=== PATIENT | female | born 1995 | race Caucasian/White ===

== ENCOUNTER → 2016-07-24 | Outpatient (REF) | payer BC ==
[2016-07-24 20:08] LABS: BASO % 0.4 % (0.0-1.0); EOS # 0.2 K/mm3 (0.0-0.50); EOS % 3.7 % (0.0-3.0); LARGE UNSTAINED CELL # 0.1 K/mm3 (0.0-0.4); LARGE UNSTAINED CELL % 1.8 % (0.0-4.0); LYMPH # 1.8 K/mm3 (1.5-6.5); LYMPH % 26.1 % (24.0-44.0); MEAN CORPUSCULAR HEMOGLOBIN 30.8 pg (27.0-33.0); MEAN CORPUSCULAR HGB CONC 33.4 g/dl (32.0-36.5); MEAN CORPUSCULAR VOLUME 92.2 fl (80.0-96.0); MONO # 0.3 K/mm3 (0.0-0.8); MONO % 4.2 % (0.0-5.0); NEUTROPHILS # 4.2 K/mm3 (1.8-7.7); NEUTROPHILS % 63.8 % (36.0-66.0); PLATELET COUNT, AUTOMATED 230 k/mm3 (150-450); RED CELL DISTRIBUTION WIDTH 11.9 % (11.5-14.5); WHITE BLOOD COUNT 6.5 K/mm3 (4.0-10.0)
[2016-07-24 20:19] LABS: ALBUMIN 4.2 GM/DL (3.2-5.2); ALBUMIN/GLOBULIN RATIO 1.14 (1.00-1.93); ALKALINE PHOSPHATASE 75 U/L (45-117); ALT/SGPT 15 U/L (12-78); ANION GAP 9 MEQ/L (8-16); AST/SGOT 16 U/L (15-37); BILIRUBIN,TOTAL 0.8 MG/DL (0.2-1.0); BLOOD UREA NITROGEN 8 MG/DL (7-18); CALCIUM LEVEL 8.9 MG/DL (8.5-10.1); CARBON DIOXIDE LEVEL 27 MEQ/L (21-32); CHLORIDE LEVEL 107 MEQ/L (98-107); FREE T4 1.04 NG/DL (0.78-1.33); GLUCOSE, FASTING 122 MG/DL (70-105); POTASSIUM SERUM 4.2 MEQ/L (3.5-5.1); SODIUM LEVEL 143 MEQ/L (136-145); TOTAL PROTEIN 7.9 GM/DL (6.4-8.2)
[2016-07-25 10:11] LABS: HEPATITIS B SURFACE ANTIBODY POSITIVE (POSITIVE)
[2016-07-25 10:26] LABS: CONTROL LINE INT CTR LINE PRESENT; HIV SCRN NEGATIVE (NEGATIVE); HIV SCRN1 NEGATIVE (NEGATIVE)
== END ==
LOC: M SFHCADAM 18:14
PROVIDERS: ATTEND Physician Assistant
DX: N72 Inflammatory disease of cervix uteri (principal); N94.6 Dysmenorrhea, unspecified
CPT/HCPCS: 80053; 84439; 84443; 85025; 86704; 86705; 86706; 86707; 86780; 86803; 87340; 87350; 87491; 87591; 87806; G0123

== ENCOUNTER → 2016-07-25 | Outpatient (CLI) | payer BC ==
--- NOTE | 2016-07-25 10:31 | REP ---
PELVIC SONOGRAM: HISTORY: Abnormal menstrual bleeding. Transabdominal and transvaginal scanning are performed. FINDINGS: Uterine dimensions are normal at 6.0 x 2.6 x 3.9 cm. Endometrial echo is 0.3 cm thick and centrally placed. No free fluid is seen. Normal ovaries are seen bilaterally. Right ovary dimensions of 2.3 x 2.1 x 1.6 cm. Left ovary measures 2.5 x 1.4 x 1.8 cm. Ovarian Doppler flow is normal bilaterally with resistive indices measured at 0.36 on the right and 0.62 on the left. The visualized bladder mcfadden are smooth. IMPRESSION: Normal pelvic sonography. Signed by Wilson Rawls MD 07/25/2016 10:45 A
== END ==
LOC: M RAD 09:34
PROVIDERS: ATTEND Physician Assistant
DX: N93.9 Abnormal uterine and vaginal bleeding, unspecified (principal)

== ENCOUNTER → 2016-11-10 | Outpatient (REF) | payer BC ==
[2016-11-16 00:06] LABS: GC Carboxy THC 38 ng/mL (Cutoff=10)
== END ==
LOC: M OUTALCOH 09:41
PROVIDERS: ATTEND Psychiatry & Neurology Psychiatry
DX: Z13.9 Encounter for screening, unspecified (principal); F12.10 Cannabis abuse, uncomplicated
CPT/HCPCS: 80306; G0480

== ENCOUNTER → 2017-02-10 | Outpatient (CLI) | payer BC ==
--- NOTE | 2017-02-10 15:32 | REP ---
ULTRASOUND LEFT LOWER OUTER QUADRANT: Real-time sonographic evaluation of the left lower outer quadrant performed at the site of a reported palpable abnormality. There is solid nodule at this location measuring 1.7 x 1.0 x 1.2 cm. It is wider than tall and has a lobulated margin. This most likely represents a fibroadenoma. It is probably benign. IMPRESSION: Solid nodule at the site of the reported palpable abnormality with a maximum diameter of 1.7 cm. This is probably benign and probably represents a fibroadenoma. Recommend followup ultrasound in six months. ACR 3 probably benign.
== END ==
LOC: M WHC 10:27
PROVIDERS: ATTEND Physician Assistant
DX: N60.02 Solitary cyst of left breast (principal)

== ENCOUNTER → 2017-06-03 | Outpatient (REF) | payer BC ==
[2017-06-03 21:07] LABS: CHLAMYDIA DNA AMPLIFICATION NEGATIVE (NEGATIVE); GC DNA AMPLIFICATION NEGATIVE (NEGATIVE)
== END ==
LOC: M LAB REF 17:07
DX: Z11.3 Encounter for screening for infections with a predominantly sexual mode of transmission (principal); Z12.4 Encounter for screening for malignant neoplasm of cervix; A51.31 Condyloma latum
CPT/HCPCS: 87591

== ENCOUNTER → 2018-05-23 | Outpatient (CLI) | payer BC ==
--- NOTE | 2018-05-25 13:57 | SLEEPCENT ---
DATE OF PROCEDURE: 05/23/2018 ORDERING PROVIDER: Tessa Peterson Nocturnal polysomnography was performed for evaluation of sleep physiology in this patient with a history of excessive somnolence and nonrestorative sleep. 9 hours and 18 minutes of data were reviewed. There were 481 minutes of sleep identified. Sleep latency was very mildly prolonged at 20 minutes. Rapid eye movement (REM) sleep latency was short at 35 minutes. Sleep architecture was good with five REM cycles. Overall sleep efficiency was 87.4%. The patient's electrocardiogram showed sinus rhythm with an average heart rate of 76 beats per minute. Electroencephalogram (EEG) showed mild coarsening in the background, possibly medication effect. No focal events were seen. There were normal waveforms for awake and sleep stages. There were only four respiratory events identified of 10 seconds in duration or greater for an apnea-hypopnea index well within normal limits at 0.5. Snoring was noted. Arousals from respiratory events occurred 1.9 times per hour. There was minimal limb activity seen. Limb movement arousal index was 0.7. Oxygen saturations remained 90% plus throughout the study. IMPRESSION: Normal nocturnal polysomnography with snoring.
== END ==
LOC: M SLEEP 20:00
PROVIDERS: ATTEND Nurse Practitioner Family
DX: R40.0 Somnolence (principal)

== ENCOUNTER → 2020-03-14 | Outpatient (REF) | payer OTHER ==
[2020-03-14 17:56] LABS: HEMATOCRIT 41.4 % (36.0-47.0); HEMOGLOBIN 13.7 g/dl (12.0-15.5); MEAN CORPUSCULAR HEMOGLOBIN 30.8 pg (27.0-33.0); MEAN CORPUSCULAR HGB CONC 33.1 g/dl (32.0-36.5); PLATELET COUNT, AUTOMATED 201 10^3/uL (150-450); RED BLOOD COUNT 4.45 10^6/uL (4.00-5.40); WHITE BLOOD COUNT 7.2 10^3/uL (4.0-10.0)
[2020-03-14 18:12] LABS: FREE T4 1.01 NG/DL (0.76-1.46)
[2020-03-14 18:54] LABS: HEPATITIS C VIRUS ABY INDEX 0.1 INDEX (<0.8)
[2020-03-14 18:56] LABS: HIV 1&2 SCREEN CENTAUR NEGATIVE (NEGATIVE)
== END ==
LOC: M PLALAB 14:36
PROVIDERS: ATTEND Advanced Practice Midwife
DX: O99.281 Endocrine, nutritional and metabolic diseases complicating pregnancy, first trimester (principal)

== ENCOUNTER → 2020-04-16 | Outpatient (CLI) | payer OTHER | LOC: M PLALAB 13:36 | PROVIDERS: ATTEND Obstetrics & Gynecology | DX: Z36.89 Encounter for other specified antenatal screening (principal) ==

== ENCOUNTER → 2020-05-07 | Outpatient (CLI) | payer OTHER ==
--- NOTE | 2020-05-07 08:41 | REP ---
INDICATION: ANATOMY COMPARISON: None. TECHNIQUE: Transabdominal obstetrical ultrasound with color Doppler evaluation. FINDINGS: Examination demonstrates a single live intrauterine in cephalic presentation. motion is identified by technologist. Placenta is noted anterior and grade 1 without evidence for placenta previa or abruption. Amniotic fluid volume is normal. Cervix measures 3.5 cm in length and appears closed.. Gestational age by LMP 18 weeks 1 day with KUSHAL 10/07/2020. Gestational age by current measurements 18 weeks 2 days with KUSHAL 10/06/2020. FHR equals 144 beats per minute. BPD: 4.2 cm 18 weeks 5 days HC: 15.2 cm 18 weeks 2 days AC: 12.4 cm 18 weeks 0 days FL: 2.7 cm 18 weeks 2 days HL: 2.6 cm 18 weeks 2 days HC/AC: 1.23 Estimated weight 226 grams (48thpercentile). Anatomical assessment demonstrates normal structures including cranium, choroid plexus, cavum, cerebellum/posterior fossa, facial features, lungs, diaphragm, stomach, cord insertion/three-vessel cord, kidneys/bladder, spine, and extremities. Echogenic focus in the left cardiac ventricle likely representing prominent chordae tendineae. IMPRESSION: Single live intrauterine demonstrating appropriate interval growth. Limited evaluation of the heart/ventricular outflow tracts may warrant re-evaluation and follow-up. Remainder of the anatomical assessment is complete and normal. <Electronically signed by Jhonny Quevedo > 05/07/20 [id number]
== END ==
LOC: M WHC 07:24
PROVIDERS: ATTEND Obstetrics & Gynecology
DX: Z36.89 Encounter for other specified antenatal screening (principal); Z3A.18 18 weeks gestation of pregnancy

== ENCOUNTER → 2020-05-09 | Outpatient (CLI) | payer OTHER ==
[2020-05-09 14:24] LABS: FREE T4 1.13 NG/DL (0.76-1.46); THYROID STIMULATING HORMONE 5.56 uIU/ML (0.358-3.740)
== END ==
LOC: M WHC 09:41
PROVIDERS: ATTEND Obstetrics & Gynecology
DX: Z34.80 Encounter for supervision of other normal pregnancy, unspecified trimester (principal); Z3A.18 18 weeks gestation of pregnancy

== ENCOUNTER → 2020-05-28 | Outpatient (CLI) | payer OTHER ==
--- NOTE | 2020-05-28 17:47 | REP ---
INDICATION: F/U ANATOMY COMPARISON: 05/07/2020 TECHNIQUE: Transabdominal obstetrical ultrasound with color Doppler evaluation. FINDINGS: Examination demonstrates a single live intrauterine in breech presentation. motion is identified by technologist. Placenta is noted anterior and grade 1 without evidence for placenta previa or abruption. Amniotic fluid volume is normal. Cervix measures 3.6 cm in length and appears closed.. Gestational age by LMP twenty-one weeks 1 day with KUSHAL 10/07/2020. Gestational age by current measurements 21 weeks 0 days with KUSHAL 10/08/2020. FHR equals 135 beats per minute. Estimated weight 390 grams (38thpercentile). Anatomical assessment demonstrates normal structures including cardiac ventricular outflow tract. Echogenic focus within the left cardiac ventricle consistent with prominent chordae tendinae again noted. IMPRESSION: Single live intrauterine in breech presentation demonstrating appropriate estimated weight and growth. Limited anatomical assessment as above. <Electronically signed by Jhonny Quevedo > 05/28/20 [id number]
== END ==
LOC: M WHC 13:17
PROVIDERS: ATTEND Obstetrics & Gynecology
DX: Z36.2 Encounter for other antenatal screening follow-up (principal); Z3A.21 21 weeks gestation of pregnancy

== ENCOUNTER → 2020-06-06 | Outpatient (REF) | payer OTHER ==
[2020-06-06 11:12] LABS: FREE T4 1.11 NG/DL (0.76-1.46); THYROID STIMULATING HORMONE 4.64 uIU/ML (0.358-3.740)
== END ==
LOC: M PLALAB 08:35
PROVIDERS: ATTEND Advanced Practice Midwife
DX: O99.282 Endocrine, nutritional and metabolic diseases complicating pregnancy, second trimester (principal); Z3A.22 22 weeks gestation of pregnancy; E03.9 Hypothyroidism, unspecified

== ENCOUNTER → 2020-07-10 | Outpatient (REF) | payer OTHER ==
[2020-07-10 15:27] LABS: HEMATOCRIT 36.6 % (36.0-47.0); HEMOGLOBIN 11.5 g/dl (12.0-15.5); MEAN CORPUSCULAR HEMOGLOBIN 28.6 pg (27.0-33.0); MEAN CORPUSCULAR HGB CONC 31.4 g/dl (32.0-36.5); PLATELET COUNT, AUTOMATED 194 10^3/uL (150-450); RED BLOOD COUNT 4.02 10^6/uL (4.00-5.40); WHITE BLOOD COUNT 9.8 10^3/uL (4.0-10.0)
== END ==
LOC: M PLALAB 11:19
PROVIDERS: ATTEND Advanced Practice Midwife
DX: Z3A.22 22 weeks gestation of pregnancy (principal)

== ENCOUNTER → 2020-07-13 | Outpatient (CLI) | payer OTHER | LOC: M LAB 08:27 | PROVIDERS: ATTEND Advanced Practice Midwife | DX: Z53.21 Procedure and treatment not carried out due to patient leaving prior to being seen by health care provider (principal) ==

== ENCOUNTER → 2020-08-17 | Outpatient (REF) | payer OTHER ==
[2020-08-17 15:02] LABS: FREE T4 1.22 NG/DL (0.76-1.46); THYROID STIMULATING HORMONE 1.7 uIU/ML (0.358-3.740)
[2020-08-17 16:16] LABS: HEMOGLOBIN A1c 4.9 %
== END ==
LOC: M SFHCWAGY 14:18
PROVIDERS: ATTEND Advanced Practice Midwife
DX: O99.820 Streptococcus B carrier state complicating pregnancy (principal); O99.810 Abnormal glucose complicating pregnancy

== ENCOUNTER → 2020-09-26 | Outpatient (CLI) | payer OTHER ==
[~2020-09-26] MED LIST: ACET500P3 PO; LEVO50TA5 PO
--- NOTE | 2020-09-27 05:54 | REP ---
INDICATION: GROWTH/VIDYA/KUSHAL 10/07/20 COMPARISON: 05/28/2020 TECHNIQUE: Transabdominal obstetrical ultrasound with color Doppler evaluation. FINDINGS: Examination demonstrates a single live intrauterine in cephalic presentation. motion is identified by technologist. Placenta is noted anterior and grade 2 without evidence for placenta previa or abruption. Amniotic fluid volume is normal. Cervix measures 3.0 cm in length and appears closed.. Gestational age by LMP and 1st U/S 30 weeks 3 days with KUSHAL 10/07/2020. Gestational age by current measurements 36 weeks 4 days with KUSHAL 10/20/2020. FHR equals 147 beats per minute. BPD: 9.0 cm at 36 weeks 4 days HC: 32.7 cm at 37 weeks 1 day AC: 33.7 cm at 37 weeks 4 days FL: 7.1 cm at 36 weeks 4 days HL: 6.1 cm at 35 weeks 2 days HC/AC: 0.97 Estimated weight 3138 grams (34thpercentile). VIDYA: 12.2 cm IMPRESSION: Single live intrauterine in cephalic presentation demonstrating appropriate estimated weight and growth. <Electronically signed by Jhonny Quevedo > 09/27/20 0530
== END ==
LOC: M WHC 11:21
PROVIDERS: ATTEND Advanced Practice Midwife
DX: O24.419 Gestational diabetes mellitus in pregnancy, unspecified control (principal); Z3A.36 36 weeks gestation of pregnancy

== ENCOUNTER 2020-09-28 04:31 | Inpatient (IN) | payer OTHER ==
[2020-09-28] VITALS (10 sets, daily range): BP systolic 126–150; BP diastolic 78–91
[~2020-09-28] VITALS: Ht 152.4 cm; Wt 50.5 kg
[2020-09-28] MEDS ORDERED: LACTATED RINGER'S 1000 ML IV STA (04:58)
[2020-09-28] MEDS ORDERED: LR 1,000 ML IV SCH (05:00)
[2020-09-28] MEDS ORDERED: ACET500P3 PO (05:10)
[2020-09-28] MEDS ORDERED: OXYTOCIN 30 UNITS IN 0.9% NaCl 500ML IV BAG (J2590) As Ordered ONE (05:17)
[2020-09-28 05:35] LABS: HEMATOCRIT 40.4 % (36.0-47.0); HEMOGLOBIN 12.5 g/dl (12.0-15.5); MEAN CORPUSCULAR HEMOGLOBIN 26.7 pg (27.0-33.0); MEAN CORPUSCULAR HGB CONC 30.9 g/dl (32.0-36.5); MEAN CORPUSCULAR VOLUME 86.3 fl (80.0-96.0); PLATELET COUNT, AUTOMATED 194 10^3/uL (150-450); RED BLOOD COUNT 4.68 10^6/uL (4.00-5.40); WHITE BLOOD COUNT 12.6 10^3/uL (4.0-10.0)
[2020-09-28] MEDS ORDERED: OXYTOCIN DRIP 30 UNITS in IV 1 EA IV SCH (06:50)
[2020-09-28] MEDS ORDERED: METHYLERGONOVINE MALEATE 0.2 MG TAB PO PRN (06:50)
[2020-09-28] MEDS ORDERED: ACETAMINOPHEN TAB 650MG DOSE (2X325MG) PO PRN (06:50)
[2020-09-28] MEDS ORDERED: MEASLES,MUMPS,RUBELLA VACCINE INJ (MMR-II) (90707) SC SCH (06:50)
[2020-09-28] MEDS ORDERED: ACETAMINOPHEN 500 MG TAB PO PRN (06:50)
[2020-09-28] MEDS ORDERED: RHOGAM 300 MCG (1500 IU) INJ (J2790) IM SCH (06:50)
[2020-09-28] MEDS ORDERED: ANUSOL HC CREAM 30GM TOP PRN (06:50)
[2020-09-28] MEDS ORDERED: DIBUCAINE 1% OINTMENT 30GM TOP PRN (06:50)
[2020-09-28] MEDS ORDERED: MOM 30ML SUSPENSION UDC PO PRN (06:50)
--- NOTE | 2020-09-28 07:01 | HPEPDOC ---
Obstetrical History & Physical General Date of Admission September 28, 2020 at 04:45 History of Present Illness 25yo G1 at 38w5d presents with c/o contractions that started at midnight and gush of clear fluid ~0400. course remarkable for A1 gestational diabetes Chief Complaint: Contractions, term, Rupture of membranes Age: 25 : 1 Care Care: Good Care Dating Final EDC: October 07, 2020 Final EDC by: 1st trimester (US) EGA at Admission: 38 Past Medical History Past Obstetrical History : Past Obstetrical History: Primgravida Past Medical History Medical History Hypothyroidism Social History Marital Status: Single * Smoker: non-smoker Alcohol: Denies Drugs: denies Allergies Coded Allergies: No Known Allergies (Unverified , 09/28/20) Medications Scheduled PRN Acetaminophen (Tylenol Extra Strength) 500 Mg Powd.pack, 1,000 MG PO Q6-8HP PRN for PAIN OR FEVER Physical Examination Physical Examination GENERAL: Alert and oriented times three. BREAST: . ABDOMEN: Gravid and non-tender to touch. FETUS: Is vertex (VTX) by sterile vaginal examination (SVE), fetus is vertex (VTX) by Jose. HEART RATE: Regular rate and rhythm. LUNGS: Clear to auscultation (CTA). Laboratory Data 24H LABS Laboratory Tests 2 09/28/20 04:46: Serology Scanned Report Hepatitis B Testing 09/28/20 05:09: Nucleated Red Blood Cells % (auto) 0.0 CBC/BMP Laboratory Tests 09/28/20 05:09 Pertinent Laboratoy Data Blood Type: A+ RBC Antibody Screen: Negative HIV: Negative Hepatitis B: Negative Hepatitis C: Negative Rapid Plasma Reagin: Nonreactive Rubella: Immune Chlamydia/Gonorrhea: Negative Group B Streptococcus: Negative Vaginal Examination Dilation: 8 cm Effacement: 100% Station: 0 Cervical Consistency: Soft Presentation: Cephalic presentation (grossly ruptured) Assessment Variability: Moderate Tocometer Contractions: Yes Frequency: regular Assessment/Plan Assessment 25-year-old 1 at 38 weeks 5 days estimated gestational age with spontaneous rupture of membranes Reassuring status A1 Gestational diabetes Plan Admit and orient. Second Rigger and consent. Group B Streptococcus (GBS) negative. Labs and intravenous (IV) per unit protocol. Counseled on Pitocin and induction of labor (IOL). Anticipate normal spontaneous delivery (). C-S as appropriate. ESME CONTRERAS MD. September 28, 2020 07:01
--- NOTE | 2020-09-28 07:04 | DNPDOC ---
[facility] Delivery Note Delivery Note DATE OF DELIVERY: 09/28/2020 TIME OF : 0631 GENDER: Female APGARS: 9 and 9. WEIGHT: 2930g or 6 lbs. 7 oz. LACERATIONS: none ANESTHESIA: none ESTIMATED BLOOD LOSS: 200 ml COUNTS: 5 laparotomy sponges accounted for prior to after delivery. DELIVERY NOTE: On 09/29/2019 at 0631 Ms Becky hewitt smoker a 25-year-old 1 para 1 had a spontaneous vaginal delivery of a live female infant Apgars 9 and 9 was 2930 g 6 lbs. 7 oz. Head was delivered occiput anterior (OA), followed by delivery of the shoulders and corpus. Infant was handed to mom with a good cry. Cord was clamped times two and was cut by support person under my direction. Placenta was then drained and delivered grossly intact. A premixed bag of 500 mL of normal saline with 30 units of Pitocin was then bolused along with uterine massage until the uterus was firm. On inspection cervix, vagina, perineum was grossly intact and hemostatic. Mom and baby in recovery on stable condition. Couples decided to name in daughter Ute Castillo. ESME CONTRERAS MD. September 28, 2020 07:04
[2020-09-28] MEDS: IBUPROFEN 800 MG TAB PO PRN (07:08)
[2020-09-28] MEDS ORDERED: LEVO50TA5 PO (08:01)
[2020-09-28] MEDS: PRENATAL VITAMINS CHEWABLE TABLET PO SCH (08:55)
[2020-09-28] MEDS: LEVOTHYROXINE 150MCG TABLET (0.15MG) PO SCH (11:03)
[2020-09-28] MEDS: LEVOTHYROXINE 25MCG TABLET (0.025MG) PO SCH (11:03)
[2020-09-28] MEDS: DOCUSATE SODIUM 100MG CAPSULE PO PRN (19:47)
[2020-09-28] MEDS: IBUPROFEN 600MG TAB PO PRN (23:33)
[2020-09-29 05:57] VITALS: BP 118/72
[2020-09-29] MEDS: LEVOTHYROXINE 150MCG TABLET (0.15MG) PO SCH (06:02)
[2020-09-29] MEDS: LEVOTHYROXINE 25MCG TABLET (0.025MG) PO SCH (06:05)
--- NOTE | 2020-09-29 07:42 | IPNPDOC ---
Text Note Date of Service The patient was seen on 09/29/20. NOTE PP #1 Feels well. Adequate pain management. Voiding VSS, afebrile, normotensive Breasts soft Fundus firm, NT, down 1 FB Lochia rubra light Perineum intact PP #1 Routine care. Anticipate D/C in am VS,Fishbone, I+O VS, Fishbone, I+O Vital Signs Date Time Temp Pulse Resp B/P (MAP) Pulse Ox O2 Delivery O2 Flow Rate FiO2 09/29/20 05:57 98.4 67 16 118/72 (87) 98 Room Air I&O- Last 24 Hours up to 6 AM 09/29/20 06:00 Intake Total 500 ml Output Total 500 ml Balance 0 ml Jenny Coyle CNM September 29, 2020 07:42
[2020-09-29] MEDS: PRENATAL VITAMINS CHEWABLE TABLET PO SCH (09:30)
[2020-09-29] MEDS: IBUPROFEN 600MG TAB PO PRN (09:30)
[2020-09-29] MEDS: IBUPROFEN 800 MG TAB PO PRN (16:54)
[2020-09-29 18:00] VITALS: BP 121/66
[2020-09-29] MEDS: DOCUSATE SODIUM 100MG CAPSULE PO PRN (20:30)
[2020-09-30] MEDS: IBUPROFEN 800 MG TAB PO PRN (03:39)
[2020-09-30 05:55] VITALS: BP 138/67
[2020-09-30] MEDS: LEVOTHYROXINE 150MCG TABLET (0.15MG) PO SCH (05:56)
[2020-09-30] MEDS: LEVOTHYROXINE 25MCG TABLET (0.025MG) PO SCH (05:56)
[2020-09-30] MEDS: PRENATAL VITAMINS CHEWABLE TABLET PO SCH (09:05)
[2020-09-30] MEDS ORDERED: DOK1CAP7 PO (12:05)
[2020-09-30] MEDS ORDERED: IBUP80TA PO (12:05)
--- NOTE | 2020-09-30 13:24 | IPNPDOC ---
Progress Note Date of Service: September 30, 2020 Day#: 2 Progress Note PPD 2 SUBJECT: Glory is a 25yo s/p uncomplicated at term after presenting in active labor with SROM, doing well day # 2. She has been ambulating, voiding spontaneously without issue and tolerating regular diet. Breast feeding without issue. Reports lochia is like a normal period. No f/c/n/v/CP/SOB. OBJECTIVE: VITAL SIGNS: Within normal limits, afebrile. Alert and oriented times three. Abdomen: Fundus firm at U-2. Soft, NTTP. Extremities: no pain with palpation of calves ASSESSMENT: Glory is a 25yo s/p uncomplicated at term after presenting in active labor with SROM, doing well day # 2. Vitals within normal limits, afebrile, hemodynamically stable with no evidence of infection. PLAN: 1. Discharge to home today. 2. Tylenol and Motrin for pain. 3. Regular diet 4. No heavy lifting, vaginal rest 6 weeks 5. Encourage breast feeding and ambulation. 6. Undecided on contraception, will consider more and re-address at 6wk PP visit. 7. Routine PP visit in 6 weeks in clinic. 8. Discussed return precautions at length. Toña Boogie MD VS, I&O, 24H, Fishbone Vital Signs/I&O Vital Signs Date Time Temp Pulse Resp B/P (MAP) Pulse Ox O2 Delivery O2 Flow Rate FiO2 09/30/20 05:55 98.4 72 15 138/67 (90) 09/29/20 18:00 99 Room Air Toña Boogie MD September 30, 2020 13:24
--- NOTE | 2020-09-30 13:26 | DS.PDOC ---
Discharge Summary General Date of Admission September 28, 2020 at 04:45 Date of Discharge September 30, 2020 Discharge Summary PROCEDURES PERFORMED DURING STAY: spontaneous vaginal delivery ADMITTING DIAGNOSES: 1. Active labor with SROM at term DISCHARGE DIAGNOSES: 1. Active labor with SROM at term COMPLICATIONS/CHIEF COMPLAINT: Induction Of Labor. HISTORY OF PRESENT ILLNESS/HOSPITAL COURSE: Glory is a 25yo s/p uncomplicated at term after presenting in active labor with SROM, doing well day # 2. She had a benign course and at time of discharge, vitals were within normal limits, afebrile, hemodynamically stable with no evidence of infection. DISCHARGE MEDICATIONS: Please see below. ALLERGIES: Please see below. PHYSICAL EXAMINATION ON DISCHARGE: VITAL SIGNS: Within normal limits, afebrile. Alert and oriented times three. Abdomen: Fundus firm at U-2. Soft, NTTP. Extremities: no pain with palpation of calves LABORATORY DATA: Please see below. DISCHARGE INSTRUCTIONS: 1. Discharge to home today. 2. Tylenol and Motrin for pain. 3. Regular diet 4. No heavy lifting, vaginal rest 6 weeks 5. Encourage breast feeding and ambulation. 6. Undecided on contraception, will consider more and re-address at 6wk PP visit 7. Routine PP visit in 6 weeks in clinic. 8. Discussed return precautions at length. DISCHARGE CONDITION: Stable TIME SPENT ON DISCHARGE: Greater than 20 minutes. Toña Boogie MD Vital Signs/I&Os Vital Signs Date Time Temp Pulse Resp B/P (MAP) Pulse Ox O2 Delivery O2 Flow Rate FiO2 09/30/20 05:55 98.4 72 15 138/67 (90) 09/29/20 18:00 99 Room Air Discharge Medications Scheduled Levothyroxine Sodium (Levothyroxine Sodium) 50 Mcg Tablet, 25 MCG PO DAILY, (Reported) Levothyroxine Sodium (Levothyroxine Sodium) 50 Mcg Tablet, 150 MCG PO DAILY, (Reported) Scheduled PRN Acetaminophen (Tylenol Extra Strength) 500 Mg Powd.pack, 1,000 MG PO Q6-8HP PRN for PAIN OR FEVER, (Reported) Docusate Sodium (Dok) 100 Mg Capsule, 100 MG PO BIDP PRN for CONSTIPATION Ibuprofen (Ibuprofen) 800 Mg Tablet, 800 MG PO Q8HP PRN for PAIN LEVEL 6-10 Allergies Coded Allergies: No Known Allergies (Unverified , 09/28/20) Toña Boogie MD September 30, 2020 13:26
== END 2020-09-30 13:40 | disposition home or self-care (01) | DRG 560 ==
LOC: M LDO 04:31 → M LDI 04:45 → M OBS 13:35
PROVIDERS: ADMIT Obstetrics & Gynecology; ATTEND Obstetrics & Gynecology
PROC: 10E0XZZ Delivery of Products of Conception, External Approach (ICD-10-PCS; principal; 2020-09-28)
DX: O24.420 Gestational diabetes mellitus in childbirth, diet controlled (principal); Z3A.38 38 weeks gestation of pregnancy; Z37.0 Single live birth; O99.284 Endocrine, nutritional and metabolic diseases complicating childbirth; E03.9 Hypothyroidism, unspecified

== ENCOUNTER → 2021-04-02 | Outpatient (REF) | payer OTHER ==
[~2021-04-02] MED LIST changes: +DOK1CAP4 PO; +IBUP80TA PO
[2021-04-02 12:17] LABS: BASO # 0.1 10^3/uL (0.0-0.2); BASO % 0.8 % (0.0-1.0); EOS # 0.2 10^3/uL (0.0-0.5); EOS % 3.1 % (0.0-3.0); HEMATOCRIT 45.6 % (36.0-47.0); HEMOGLOBIN 14.4 g/dl (12.0-15.5); LYMPH % 41.4 % (24.0-44.0); MEAN CORPUSCULAR HEMOGLOBIN 29.5 pg (27.0-33.0); MEAN CORPUSCULAR HGB CONC 31.6 g/dl (32.0-36.5); MEAN CORPUSCULAR VOLUME 93.4 fl (80.0-96.0); MONO # 0.4 10^3/uL (0.0-0.8); MONO % 5.9 % (2.0-8.0); NEUTROPHILS # 3.6 10^3/uL (1.5-8.5); NEUTROPHILS % 48.7 % (36.0-66.0); PLATELET COUNT, AUTOMATED 221 10^3/uL (150-450); RED BLOOD COUNT 4.88 10^6/uL (4.00-5.40); WHITE BLOOD COUNT 7.4 10^3/uL (4.0-10.0)
[2021-04-02 14:01] LABS: ALBUMIN 4.4 GM/DL (3.2-5.2); ALT/SGPT 43 U/L (12-78); AMYLASE 93 U/L (25-115); BILIRUBIN,TOTAL 0.7 MG/DL (0.2-1.0); BLOOD UREA NITROGEN 14 MG/DL (7-18); CALCIUM LEVEL 9.7 MG/DL (8.5-10.1); CARBON DIOXIDE LEVEL 29 MEQ/L (21-32); CHLORIDE LEVEL 108 MEQ/L (98-107); CREATININE FOR GFR 0.86 MG/DL (0.55-1.30); FREE T4 0.41 NG/DL (0.76-1.46); GLOMERULAR FILTRATION RATE > 60.0 (>60); GLUCOSE, FASTING 78 MG/DL (70-100); HCG, SERUM QUANTITATIVE < 1.0 MIU/ML; LIPASE 169 U/L (73-393); POTASSIUM SERUM 4.7 MEQ/L (3.5-5.1); SODIUM LEVEL 144 MEQ/L (136-145); TOTAL PROTEIN 8.2 GM/DL (6.4-8.2)
== END ==
LOC: M SFHCADAM 07:52
PROVIDERS: ATTEND Physician Assistant
DX: E03.9 Hypothyroidism, unspecified (principal); N63.20 Unspecified lump in the left breast, unspecified quadrant; R10.12 Left upper quadrant pain; F41.9 Anxiety disorder, unspecified

== ENCOUNTER → 2021-10-28 | Outpatient (REF) | payer OTHER, MEDICAID ==
[2021-10-28 17:26] LABS: FREE T4 1.07 NG/DL (0.76-1.46); THYROID STIMULATING HORMONE 3.72 uIU/ML (0.358-3.740)
== END ==
LOC: M LAB REF 16:12
PROVIDERS: ATTEND Physician Assistant
DX: E03.9 Hypothyroidism, unspecified (principal)

== ENCOUNTER → 2021-11-06 | Outpatient (CLI) | payer OTHER, MEDICAID | LOC: M WUC 10:54 | PROVIDERS: ATTEND Physician Assistant | DX: S63.502A Unspecified sprain of left wrist, initial encounter (principal); X58.XXXA Exposure to other specified factors, initial encounter; Y92.9 Unspecified place or not applicable; Y93.9 Activity, unspecified; Y99.9 Unspecified external cause status ==

== ENCOUNTER → 2022-01-08 | Outpatient (CLI) | payer MEDICAID, OTHER | LOC: M RAD 07:05 | PROVIDERS: ATTEND Internal Medicine Gastroenterology | DX: K30 Functional dyspepsia (principal) ==

== ENCOUNTER → 2022-03-21 | Outpatient (REF) | payer OTHER | LOC: M LAB REF 20:27 | PROVIDERS: ATTEND Internal Medicine Gastroenterology | DX: K30 Functional dyspepsia (principal); R11.0 Nausea; R63.4 Abnormal weight loss ==

== ENCOUNTER → 2022-06-27 | Outpatient (REF) | payer OTHER | LOC: M PLALAB 10:51 | PROVIDERS: ATTEND Nurse Practitioner Family | DX: Z12.4 Encounter for screening for malignant neoplasm of cervix (principal); R87.610 Atypical squamous cells of undetermined significance on cytologic smear of cervix (ASC-US) | CPT/HCPCS: 87624; G0123 ==

== ENCOUNTER → 2022-08-06 | Outpatient (CLI) | payer OTHER | LOC: M WHC 15:25 | PROVIDERS: ATTEND Nurse Practitioner Family | DX: N63.23 Unspecified lump in the left breast, lower outer quadrant (principal) ==

== ENCOUNTER → 2022-11-03 | Outpatient (CLI) | payer OTHER ==
[2022-11-03 18:42] LABS: HEMATOCRIT 38.2 % (36.0-47.0); HEMOGLOBIN 12.8 g/dl (12.0-15.5); MEAN CORPUSCULAR HGB CONC 33.5 g/dl (32.0-36.5); MEAN CORPUSCULAR VOLUME 89.5 fl (80.0-96.0); PLATELET COUNT, AUTOMATED 217 10^3/uL (150-450); RED BLOOD COUNT 4.27 10^6/uL (4.00-5.40); WHITE BLOOD COUNT 8.1 10^3/uL (4.0-10.0)
[2022-11-03 18:50] LABS: FREE T4 1.36 NG/DL (0.89-1.76); THYROID STIMULATING HORMONE 0.205 uIU/ML (0.55-4.78)
[2022-11-03 20:05] LABS: GC DNA AMPLIFICATION NEGATIVE (NEGATIVE)
[2022-11-04 22:47] LABS: HIV 1&2 SCREEN NEGATIVE (NEGATIVE)
[2022-11-04 22:56] LABS: HEPATITIS C VIRUS ABY INDEX 0.09 INDEX (<0.8)
== END ==
LOC: M PLALAB 15:01
PROVIDERS: ATTEND Advanced Practice Midwife
DX: O99.281 Endocrine, nutritional and metabolic diseases complicating pregnancy, first trimester (principal); Z3A.00 Weeks of gestation of pregnancy not specified

== ENCOUNTER → 2022-12-19 | Outpatient (CLI) | payer OTHER | LOC: M PLALAB 08:04 | PROVIDERS: ATTEND Obstetrics & Gynecology | DX: Z34.92 Encounter for supervision of normal pregnancy, unspecified, second trimester (principal) ==

== ENCOUNTER → 2023-01-14 | Outpatient (CLI) | payer OTHER | LOC: M LAB 07:37 | PROVIDERS: ATTEND Obstetrics & Gynecology | DX: O99.810 Abnormal glucose complicating pregnancy (principal); Z3A.00 Weeks of gestation of pregnancy not specified ==

== ENCOUNTER → 2023-01-21 | Outpatient (CLI) | payer OTHER | LOC: M WHC 14:49 | PROVIDERS: ATTEND Obstetrics & Gynecology | DX: Z34.92 Encounter for supervision of normal pregnancy, unspecified, second trimester (principal) ==

== ENCOUNTER → 2023-01-28 | Outpatient (REF) | payer OTHER ==
[2023-01-28 20:47] LABS: FREE T4 1.05 NG/DL (0.89-1.76); THYROID STIMULATING HORMONE 3.31 uIU/ML (0.55-4.78)
== END ==
LOC: M SFHCWAGY 17:21
PROVIDERS: ATTEND Obstetrics & Gynecology
DX: E03.9 Hypothyroidism, unspecified (principal)

== ENCOUNTER → 2023-02-27 | Outpatient (CLI) | payer OTHER | LOC: M WHC 14:34 | PROVIDERS: ATTEND Advanced Practice Midwife | DX: O32.1XX0 Maternal care for breech presentation, not applicable or unspecified (principal); Z3A.24 24 weeks gestation of pregnancy ==

== ENCOUNTER → 2023-05-22 | Outpatient (REF) | payer OTHER | LOC: M PLALAB 09:12 | PROVIDERS: ATTEND Obstetrics & Gynecology | DX: Z34.83 Encounter for supervision of other normal pregnancy, third trimester (principal) ==

== ENCOUNTER → 2023-10-15 | Outpatient (REF) | payer OTHER ==
[~2023-10-15] MED LIST changes: +ACET-683 PO; +COLA100C5 PO; +IBUP-1022 PO; +LEVO175T2 PO
[2023-10-20 15:09] LABS: HPV APTIMA Negative (Negative)
== END ==
LOC: M PLALAB 15:22
PROVIDERS: ATTEND Advanced Practice Midwife
DX: Z12.4 Encounter for screening for malignant neoplasm of cervix (principal); R87.610 Atypical squamous cells of undetermined significance on cytologic smear of cervix (ASC-US)
CPT/HCPCS: 87624; G0123

== ENCOUNTER → 2024-03-16 | Outpatient (REF) | payer OTHER | LOC: M SFHCADAM 11:27 | PROVIDERS: ATTEND Physician Assistant | DX: E03.9 Hypothyroidism, unspecified (principal); Z53.9 Procedure and treatment not carried out, unspecified reason ==

== ENCOUNTER → 2024-03-28 | Outpatient (REF) | payer OTHER ==
[2024-03-28 19:17] LABS: FREE T4 1.34 NG/DL (0.89-1.76); THYROID STIMULATING HORMONE 0.237 uIU/ML (0.55-4.78)
== END ==
LOC: M LABDRWAD 17:28 → M SFHCADAM 17:28
PROVIDERS: ATTEND Physician Assistant
DX: E03.9 Hypothyroidism, unspecified (principal)

== ENCOUNTER → 2024-07-19 | Outpatient (REF) | payer OTHER ==
[2024-07-19 18:24] LABS: FREE T4 1.42 NG/DL (0.89-1.76)
[2024-07-19 18:25] LABS: THYROID STIMULATING HORMONE 1.068 uIU/ML (0.55-4.78)
== END ==
LOC: M SFHCADAM 12:51
PROVIDERS: ATTEND Physician Assistant
DX: E03.9 Hypothyroidism, unspecified (principal)